=== PATIENT | female | born 1985 | race Caucasian/White ===

== ENCOUNTER 2019-03-04 06:31 | Day surgery (SDC) | payer OTHER, SELFPAY ==
[2019-02-23 08:46] VITALS: BMI 35.4
[2019-03-04] VITALS (9 sets, daily range): BP systolic 107–117; BP diastolic 68–83; PULSE 56–71; RESP 10–19; TEMP 36.5–36.9; O2SAT 96–100; BMI 35.6
[2019-03-04] MEDS: LACTATED RINGERS 1,000 ML 42 ML IV (07:12)
--- NOTE | 2019-03-04 07:36 | PM.PREOP ---
Pre-operative Note Interval Note History & Physical reviewed/Exam performed by Physician: Yes Changes to H&P: No H&P completed within 30 days and has changed as indicated here:: see note from 01/27/19
[2019-03-04] MEDS: BUPIVACAINE 0.5% W/ EPI (PF) VIAL 30 ML INJ (08:08)
--- NOTE | 2019-03-04 08:08 | SUR.OPER ---
Lithotomy on padded OR bed, head on pillow, arms secured on padded arm boards at <90 degrees abduction. Legs secured in padded yellow fins stirrups.
--- NOTE | 2019-03-04 08:37 | PM.OP.1 ---
Operative Date/Time/Diagnoses Date of procedure: 03/04/19 Time of procedure: 08:37 Pre-op diagnosis: Undesired fertility and dysmenorrhea Post-op diagnosis: same Procedure & Clinicians Procedure: Laparoscopic tubal ligation by fulguration Same procedure as scheduled: Yes Indications: Undesired fertility and dysmenorrhea Surgeon: Trisha Waters Click Yes if Unassisted: Yes Anesthesia Type: General Operative Notes Findings: Normal tubes, ovaries, uterus, bowel surface, liver edge, no internal hernias, no endometriosis, no scar tissue Closure Type: primary Specimen(s): none sent Estimated Blood Loss (mL): 1 Blood products transfused: none Procedure in detail: Patient was brought to the operating room where she underwent general anesthesia. She was placed in low yellowfin stirrups and prepped and draped in usual sterile fashion. No antibiotics were indicated. Pulsatile stockings were in place and functional. Warming was with blankets. A single-tooth tenaculum was placed on the anterior lip of the cervix and the cervix dilated to #6 Hegar dilator. The [employer] uterine manipulator was placed and balloon inflated with 3 mL of air. The area of the incisions were injected with half percent Marcaine with epinephrine. An incision was made in the umbilicus with a scalpel and the Verres needle placed in the abdomen. Confirmation of correct placement of the needle was performed by withdrawing on the syringe and then allowing fluid to fall freely through the needle. The abdomen was insufflated to 3 L of CO2. A 5 mm trocar was placed under direct visualization. 1 other 5 mm trochars were placed in the right lower quadrant under direct visualization after incising the skin. There did not appear to be any damage with placement of the trocars. The right fallopian tube was cauterized with the PK generator and 3 places and cut in the middle. Same procedure was performed on the left tube. Adequate hemostasis was noted. The CO2 was allowed to escape from the abdomen. The trochars were removed. Skin was closed with 4-0 monocryl. The patient went to recovery room in good condition. Complications: none Condition: stable Disposition: same day surgery Plan for aftercare: Routine postoperative longterm when awake and stable.
--- NOTE | 2019-03-04 08:41 | P.OP_ITS ---
Operative Date/Time/Diagnoses Date of procedure: 03/04/19 Time of procedure: 08:37 Pre-op diagnosis: Undesired fertility and dysmenorrhea Post-op diagnosis: same Procedure & Clinicians Procedure: Laparoscopic tubal ligation by fulguration Same procedure as scheduled: Yes Indications: Undesired fertility and dysmenorrhea Surgeon: Trisha Waters Click Yes if Unassisted: Yes Anesthesia Type: General Operative Notes Findings: Normal tubes, ovaries, uterus, bowel surface, liver edge, no internal hernias, no endometriosis, no scar tissue Closure Type: primary Specimen(s): none sent Estimated Blood Loss (mL): 1 Blood products transfused: none Procedure in detail: Patient was brought to the operating room where she underwent general anesthesia. She was placed in low yellowfin stirrups and prepped and draped in usual sterile fashion. No antibiotics were indicated. Pulsatile stockings were in place and functional. Warming was with blankets. A single-tooth tenaculum was placed on the anterior lip of the cervix and the cervix dilated to #6 Hegar dilator. The [employer] uterine manipulator was placed and balloon inflated with 3 mL of air. The area of the incisions were injected with half percent Marcaine with epinephrine. An incision was made in the umbilicus with a scalpel and the Verres needle placed in the abdomen. Confirmation of correct placement of the needle was performed by withdrawing on the syringe and then allowing fluid to fall freely through the needle. The abdomen was insufflated to 3 L of CO2. A 5 mm trocar was placed under direct visualization. 1 other 5 mm trochars were placed in the right lower quadrant under direct visualization after incising the skin. There did not appear to be any damage with placement of the trocars. The right fallopian tube was cauterized with the PK generator and 3 places and cut in the middle. Same procedure was performed on the left tube. Adequate hemostasis was noted. The CO2 was allowed to escape from the abdomen. The trochars were removed. Skin was closed with 4-0 monocryl . The patient went to recovery room in good condition. Complications: none Condition: stable Disposition: same day surgery Plan for aftercare: Routine postoperative prison when awake and stable.
--- NOTE | 2019-03-04 08:55 | SUR.PHASEI ---
to PACU very sleepy, arouses easily to voice, denies pain/nausea. Oriented - asked Is it done already?
--- NOTE | 2019-03-04 09:01 | SUR.PHASEI ---
Dr. Waters spoke with patient; fell back asleep when asked if she wanted some ice chips
--- NOTE | 2019-03-04 09:38 | SUR.PHASEII ---
0930 Instructions reviewed, ready to go home, denies pain/nausea - tolerating ice chips well. [id number] Dr. Waters spoke with patient. Patient disappointed that the cause of her pain wasn't found.
--- NOTE | 2019-03-04 09:52 | P.HPOB_ITS ---
History of Present Illness Reason for admission: pelvic pain and other (Undesired fertility) Narrative: Abhijeet Yan is a 34 year old female admitted for tubal ligation and treatment of endometriosis if found [facility] Medical History Dyspareunia (Acute) Menorrhagia (Acute) Social History household members: spouse Smoking Status: Never smoker Social History household members: spouse Smoking Status: Never smoker Meds Home Medications Medication Instructions Recorded Confirmed Type albuterol sulfate HFA 90 1 puff INHALATION Q6H PRN 09/16/18 02/23/19 History mcg/actuation aerosol inhaler loratadine 10 mg tablet 10 mg PO DAILY 01/27/19 03/04/19 History hydrocodone-acetaminophen 2 tab PO Q4-6H PRN #30 tab 03/04/19 Rx Allergies Allergy/AdvReac Type Severity Reaction Status Date / Time codeine Allergy Mild Nausea Verified 03/04/19 06:52 caffeine Allergy nausea, Verified 03/04/19 06:52 headache nickel Allergy Rash Verified 03/04/19 06:52 Review of Systems Review of Systems Patient complains of dysmenorrhea. Patient does feel like her pain has improved with continuous dose norethindrone control pills but she has more constant bleeding. Discussed laparoscopy with possible treatment of endometriosis and tubal ligation. Risks of damage to internal structures, bowel, bladder,ureters discussed. Discussed the risk for ectopic with a tubal ligation 1 in 400. Discussed possibility she may continue to have endometriosis pain after surgery. Consent form was signed and questions answered. All systems reviewed & are unremarkable except as noted in HPI and below Exam Vital Signs (past 8 hours): - 03/04/19 06:56 03/04/19 08:42 03/04/19 08:43 Temperature 97.8 F 97.7 F Pulse Rate 65 71 66 Respiratory Rate 16 10 L 12 Blood Pressure 109/75 109/68 117/70 Pulse Oximetry 96 96 100 03/04/19 08:48 03/04/19 08:53 03/04/19 08:58 Temperature Pulse Rate 57 L 56 L 62 Respiratory Rate 13 11 L 19 Blood Pressure 110/71 110/69 109/69 Pulse Oximetry 100 100 100 03/04/19 09:13 03/04/19 09:21 03/04/19 09:45 Temperature 98.5 F 97.8 F Pulse Rate 70 64 65 Respiratory Rate 16 11 L 15 Blood Pressure 107/70 116/83 116/77 Pulse Oximetry 100 98 100 Oxygen Delivery Method Room Air Narrative Exam Narrative: HEENT exam within normal limits. Lungs are clear to auscultation and percussion. Heart is regular rate and rhythm S3-S4 or murmurs. Abdomen is soft, nontender. Pelvic exam was not performed. Assessment & Plan (1) Admission for sterilization: Current visit: No Status: Acute (2) Dysmenorrhea: Current visit: No Status: Acute Assessment & Plan narrative: Patient with dysmenorrhea and undesired fertility who is requesting laparoscopy with treatment of endometriosis if found and tubal ligation. Consent form was signed with the patient and questions answered.
== END 2019-03-04 09:46 | disposition home or self-care (01) ==
PROVIDERS: PCP Nurse Practitioner Family; Visit Provider Specialist
PROC: (CPT 58671; principal; 2019-03-04 07:45)
DX: N94.6 Dysmenorrhea, unspecified (principal); N80.8 Other endometriosis; Z30.2 Encounter for sterilization; N94.10 Unspecified dyspareunia
CPT/HCPCS: 58670; J0330; J1100; J1885; J2250; J2405; J2704; J3010